=== PATIENT | female | born 1940 | race African-American/Black ===

== ENCOUNTER 2021-07-02 08:48 | Emergency (ER) | payer MEDICARE, OTHER ==
[~2021-07-02 08:48] MED LIST: ALLEGRA ALLERG180 MG PO; AMIODARONE HCL200 MG PO; ATENOLOL25 MG PO; BREO ELLIPTA 11 EACH INH; BUDESONIDE0.5 MG/2 M INH; CALCIUM PO; CEFDINIR300 MG PO; COLACE100 MG PO; D3 PO; ELIQUIS5 MG PO; IRON325 M1 PO; K-TAB ER10 MEQ PO; LOVAZA1 GM PO; MIRALAX17 GM PO; MUCINEX PO; NASACORT16.9 ML; PERFOROMIS20 MCG/2 M INH; PREDNISONE 20MG20 MG PO; PROTONIX 40MG T40 MG PO; REMERON15 MG PO; SINGULAIR10 MG PO; TRAMADOL HCL50 MG PO; VENTOLIN HFA IN18 GM INH; WELCHOL625 MG PO; ZOLOFT50 MG PO; [UNRECOGNIZED DRUG - OTHER] PO
== END 2021-07-02 12:20 | disposition home or self-care (01) ==
LOC: FER 08:48
DX: U07.1 COVID-19 (principal); J44.9 Chronic obstructive pulmonary disease, unspecified; Z23 Encounter for immunization; Z87.891 Personal history of nicotine dependence
CPT/HCPCS: M0243; Q0244